=== PATIENT | female | born 1975 | race Caucasian/White ===

== ENCOUNTER 2017-06-26 16:30 | Emergency (ER) | payer MEDICARE, MEDICAID ==
[~2017-06-26] VITALS: Ht 180.3 cm; Wt 100.0 kg
[~2017-06-26 16:30] MED LIST: AMOX/K CLAV500 MG PO; BACLOFEN10 MG PO; BACTRIM DS1 TAB OR; BACTROBAN2 % EX; BIOTIN1000 MCG PO; CIPRO500 MG OR; COZAAR25 MG OR; CRANBERRY200 MG PO; DANTROLENE OR; DARVOCET N-100100 - OR; DITROPAN OR; DOXYCYC MONO100 M1 OR; IMODIUM2 MG PO; JANUVIA100 MG OR; LANTUS100 MG/ML SC; LORTAB 7.5 OR; LYRICA75 MG OR; MACROBID100 MG OR; METFORMIN500 M1 PO; METFORMIN500 MG PO; METRONIDAZOL500 MG PO; MULTI VIT PO; MULTIVITAMI9 PO; NAPROXEN ER500 MG OR; NOVOLOG MIX100 U/ML SC; PRILOSEC40 MG PO; PYRIDIUM200 MG OR; TRAMADOL HCL50 MG OR
[2017-06-26 17:35] LABS: HEMATOCRIT 38.8 % (37.0-47.0); HEMOGLOBIN 11.9 g/dl (12.0-16.0); IMMATURE GRANULOCYTES 0.2 % (0.0-1.0); MEAN CELL VOLUME 79.8 fL CALC (80.0-100.0); MEAN CORPUSCULAR HGB 24.5 pG CALC (26.0-32.0); MEAN CORPUSCULAR HGB CONC 30.7 g/L CALC (32.0-36.0); NEUT# 3.47 thou/uL (2.00-7.15); RED BLOOD COUNT 4.86 mill/uL (4.20-5.60); RED CELL DISTRI WIDTH 15.9 % (11.5-15.5)
[2017-06-26 17:42] LABS: ANION GAP 16 (6-22 (CALC)); BUN 19 mg/dL (7-17); BUN/CREATININE RATIO 20 (12-20 (CALC)); CARBON DIOXIDE 24 mmol/l (22-30); CHLORIDE 107 mmol/l (95-108); CREATININE 0.9 mg/dL (0.5-1.0); GFR > 60 ML/MIN (>=60 (CALC)); GFR FOR AFR.AMER. > 60 ML/MIN (>=60 (CALC)); GLUCOSE 185 mg/dL (65-105); POTASSIUM 4.3 mmol/l (3.5-5.1); PROTHROMBIN TIME 10.4 SECONDS (9.0-12.5); SODIUM 144 mmol/l (137-146)
[2017-06-26] MEDS ORDERED: PREDNISONE20 MG PO (18:18)
[2017-06-26] MEDS ORDERED: VALACYCLOVIR HCL1 GM PO (18:18)
[2017-06-26 18:49] VITALS: BP 117/76
== END 2017-06-26 18:50 | disposition home or self-care (01) ==
LOC: ED 16:30
PROVIDERS: Family Medicine
DX: G51.0 Bell's palsy (principal); G82.20 Paraplegia, unspecified; E11.9 Type 2 diabetes mellitus without complications; Z79.4 Long term (current) use of insulin

== ENCOUNTER → 2018-11-07 | Outpatient (REF) | payer MEDICARE, MEDICAID ==
[~2018-11-07] MED LIST changes: +PREDNISONE20 MG PO; +VALACYCLOVIR HCL1 GM PO
[2018-11-07 12:49] LABS: TSH, 3RD GENERATION 0.11 uIU/mL (0.47 - 4.68)
== END | disposition home or self-care (01) ==
LOC: LAB 11:07
PROVIDERS: ATTEND Internal Medicine Endocrinology, Diabetes & Metabolism
DX: E05.90 Thyrotoxicosis, unspecified without thyrotoxic crisis or storm (principal)

== ENCOUNTER 2018-11-17 12:57 | Outpatient (RCR) | payer MEDICARE, MEDICAID ==
[2018-11-11 15:16] VITALS: BP 160/86
[2018-11-12 11:18] VITALS: BP 104/59
[2018-11-13 11:46] VITALS: BP 104/59
[2018-11-14 13:51] VITALS: BP 134/85
[2018-11-16 13:53] VITALS: BP 128/78
[~2018-11-17] VITALS: Ht 180.3 cm; Wt 93.0 kg
[2018-11-17 14:30] VITALS: BP 121/83
== END 2018-11-17 14:00 | disposition home or self-care (01) ==
LOC: INF 12:57
PROVIDERS: ATTEND Internal Medicine
DX: N39.0 Urinary tract infection, site not specified (principal); B96.20 Unspecified Escherichia coli [E. coli] as the cause of diseases classified elsewhere; Z16.12 Extended spectrum beta lactamase (ESBL) resistance
CPT/HCPCS: J1335

== ENCOUNTER → 2018-11-29 | Outpatient (REF) | payer MEDICARE, MEDICAID ==
[2018-11-29 15:23] LABS: URINE BILIRUBIN - DIPSTICK NEGATIVE (NEGATIVE); URINE BLOOD DIPSTICK SMALL (NEGATIVE); URINE COLOR YELLOW; URINE GLUCOSE - DIPSTICK NEGATIVE (NEGATIVE); URINE KETONE NEGATIVE (NEGATIVE); URINE LEUK ESTERASE NEGATIVE (NEGATIVE); URINE NITRITE - DIPSTICK NEGATIVE (Negative); URINE PH 6.5 (4.5-8.0); URINE PROTEIN - DIPSTICK NEGATIVE (NEG-TRACE); URINE SPECIFIC GRAVITY 1.015; URINE UROBILINOGEN - DIPSTICK 0.2 E.U./dL (0.2)
[2018-11-29 15:33] LABS: URINE SQUAMOUS EPITHELIAL CELL FEW EPI/hpf (0-FEW); URINE WBC 0-2 WBC/hpf (0-5)
== END | disposition home or self-care (01) ==
LOC: LAB 14:25
PROVIDERS: ATTEND Internal Medicine
DX: N30.00 Acute cystitis without hematuria (principal)

== ENCOUNTER 2023-05-08 06:54 | Emergency (ER) | payer MEDICARE, MEDICAID ==
[~2023-05-08] VITALS: Ht 180.3 cm; Wt 105.0 kg
[2023-05-08] VITALS (34 sets, daily range): BP systolic 82–171; BP diastolic 52–107
[2023-05-08 08:00] LABS: BASO% 0.1 % (0-3); HEMATOCRIT 36.8 % (37.0-47.0); HEMOGLOBIN 11.1 g/dl (12.0-16.0); IMMATURE GRANULOCYTES 0.8 % (0.0-5.0); LYMPH% 3.1 % (15-41); MEAN CELL VOLUME 82.1 fL CALC (80.0-100.0); MEAN CORPUSCULAR HGB 24.8 pG CALC (26.0-32.0); MEAN CORPUSCULAR HGB CONC 30.2 g/dL CAL (32.0-36.0); MONO% 7.2 % (2-13); NEUT# 10.64 thou/uL (2.00-7.15); NEUT% 88.8 % (42-76); RED BLOOD COUNT 4.48 mill/uL (4.20-5.60); RED CELL DISTRI WIDTH 15.8 % (11.5-15.5)
[2023-05-08 08:13] LABS: ALBUMIN 3.5 g/dL (3.2-5.0); POTASSIUM 4.8 mmol/l (3.5-5.1); TOTAL PROTEIN 6.9 g/dL (6.3-8.2)
[2023-05-08 08:20] LABS: BILIRUBIN, TOTAL 1.4 mg/dL (0.02-1.3); CREATININE 2.6 mg/dL (0.5-1.0)
[2023-05-08 10:09] LABS: URINE BLOOD DIPSTICK Large (NEGATIVE); URINE GLUCOSE - DIPSTICK Negative (NEGATIVE); URINE KETONE Trace mg/dL (NEGATIVE); URINE NITRITE - DIPSTICK Negative (Negative); URINE PROTEIN - DIPSTICK >=300 mg/dL (NEG-TRACE); URINE SPECIFIC GRAVITY 1.025; URINE UROBILINOGEN - DIPSTICK 0.2 E.U./dL (0.2)
[2023-05-08 10:13] LABS: URINE LEUK ESTERASE Large (NEGATIVE)
[2023-05-08 10:14] LABS: URINE COLOR Brown; URINE EPITHELIAL CELLS MODERATE EPI/hpf (0-FEW); URINE RBC TNTC RBC/hpf (0-5); URINE WBC 20-50 WBC/hpf (0-5)
[2023-05-08 10:15] LABS: URINE BACTERIA MODERATE hpf
[2023-05-08] MEDS ORDERED: KEFLEX500 MG PO (10:41)
[2023-05-08] MEDS ORDERED: OMEPRAZOLE DR40 MG (10:41)
[2023-05-08] MEDS ORDERED: TRAMADOL HCL50 MG PO (10:42)
== END 2023-05-08 15:00 ==
LOC: ED 06:54
PROVIDERS: Family Medicine
PROC: 05HM33Z Insertion of Infusion Device into Right Internal Jugular Vein, Percutaneous Approach (ICD-10-PCS; principal; 2023-05-08)
PROC: 3E033XZ Introduction of Vasopressor into Peripheral Vein, Percutaneous Approach (ICD-10-PCS; 2023-05-08)
PROC: 0BH17EZ Insertion of Endotracheal Airway into Trachea, Via Natural or Artificial Opening (ICD-10-PCS; 2023-05-08)
PROC: 5A1935Z Respiratory Ventilation, Less than 24 Consecutive Hours (ICD-10-PCS; 2023-05-08)
DX: A41.9 Sepsis, unspecified organism (principal); R65.20 Severe sepsis without septic shock; J96.00 Acute respiratory failure, unspecified whether with hypoxia or hypercapnia; J18.9 Pneumonia, unspecified organism; N39.0 Urinary tract infection, site not specified; E11.9 Type 2 diabetes mellitus without complications; G82.20 Paraplegia, unspecified; Z87.440 Personal history of urinary (tract) infections; Z79.84 Long term (current) use of oral hypoglycemic drugs; Z79.4 Long term (current) use of insulin; Z96.0 Presence of urogenital implants; Z20.822 Contact with and (suspected) exposure to COVID-19

== ENCOUNTER 2024-11-21 00:19 | Emergency (ER) | payer MEDICARE, MEDICAID ==
[~2024-11-21] VITALS: Ht 180.3 cm; Wt 158.8 kg
[~2024-11-21 00:19] MED LIST changes: +KEFLEX500 MG PO; +OMEPRAZOLE DR40 MG; +TRAMADOL HCL50 MG PO
[2024-11-21] MEDS ORDERED: SODIUM CHLORIDE 0.9% 1,000 ML IV STA (00:44)
[2024-11-21] MEDS ORDERED: PROMETHAZINE HCL 25 MG/ML AMP IV ONE (00:45)
[2024-11-21] MEDS ORDERED: KETOROLAC TROMETHAMINE 30 MG/ML SDV IV ONE (00:45)
[2024-11-21 01:15] LABS: BASO% 0.6 % (0-3); EOS% 0.7 % (0-8); HEMATOCRIT 40.7 % (37.0-47.0); HEMOGLOBIN 12.2 g/dl (12.0-16.0); IMMATURE GRANULOCYTES 0.1 % (0.0-5.0); LYMPH% 12.6 % (15-41); MEAN CELL VOLUME 82.1 fL CALC (80.0-100.0); MEAN CORPUSCULAR HGB 24.6 pG CALC (26.0-32.0); MONO% 6.5 % (2-13); NEUT# 5.77 thou/uL (2.00-7.15); NEUT% 79.5 % (42-76); RED BLOOD COUNT 4.96 mill/uL (4.20-5.60); RED CELL DISTRI WIDTH 15.4 % (11.5-15.5)
[2024-11-21 01:15] LABS: URINE BILIRUBIN - DIPSTICK Negative (NEGATIVE); URINE BLOOD DIPSTICK Small (NEGATIVE); URINE GLUCOSE - DIPSTICK 100 mg/dL (NEGATIVE); URINE KETONE Negative (NEGATIVE); URINE PH 6.5 (4.5-8.0); URINE PROTEIN - DIPSTICK Trace mg/dL (NEG-TRACE); URINE SPECIFIC GRAVITY 1.015; URINE UROBILINOGEN - DIPSTICK 0.2 E.U./dL (0.2)
[2024-11-21 01:20] LABS: URINE COLOR Yellow; URINE LEUK ESTERASE Large (NEGATIVE); URINE NITRITE - DIPSTICK Negative (Negative)
[2024-11-21 01:22] LABS: URINE RBC 25-50 RBC/hpf (0-5)
[2024-11-21 01:23] LABS: URINE BACTERIA MANY hpf; URINE EPITHELIAL CELLS MODERATE EPI/hpf (0-FEW); URINE MUCUS MANY hpf (NONE-FEW); URINE WBC 50-100 WBC/hpf (0-5); URINE YEAST MODERATE hpf
[2024-11-21 01:37] LABS: ALBUMIN 3.8 g/dL (3.2-5.0); BILIRUBIN, TOTAL 0.7 mg/dL (0.02-1.3); CREATININE 0.7 mg/dL (0.5-1.0); POTASSIUM 4.4 mmol/l (3.5-5.1); TOTAL PROTEIN 6.8 g/dL (6.3-8.2)
[2024-11-21] MEDS ORDERED: PROMETHAZINE HY25 M1 PO (02:44)
[2024-11-21 05:00] VITALS: BP 125/74
== END 2024-11-21 05:00 | disposition home or self-care (01) ==
LOC: ED 00:19
PROVIDERS: Family Medicine
DX: A08.4 Viral intestinal infection, unspecified (principal); E11.9 Type 2 diabetes mellitus without complications; G82.50 Quadriplegia, unspecified; S14.109S Unspecified injury at unspecified level of cervical spinal cord, sequela; V89.2XXS Person injured in unspecified motor-vehicle accident, traffic, sequela; Z87.440 Personal history of urinary (tract) infections; Z93.6 Other artificial openings of urinary tract status; Z20.822 Contact with and (suspected) exposure to COVID-19; R82.71 Bacteriuria
CPT/HCPCS: J2550; Q9967